=== PATIENT | female | born 1995 | race American Indian/Alaskan Native ===

== ENCOUNTER 2020-11-13 18:04 | Inpatient (IN) | payer MEDICAID ==
[2020-11-13] MEDS ORDERED: ePHEDrine SULFATE 50 MG/1 ML INJ IV PRN (18:40)
[2020-11-13] MEDS ORDERED: MINERAL OIL 30 ML ORAL LIQD PO PRN (18:40)
[2020-11-13] MEDS ORDERED: TERBUTALINE 1 MG/1 ML INJ SUB-Q PRN (18:40)
[2020-11-13] MEDS ORDERED: LIDOCAINE (2%) 20 MG/1 ML VIAL 20 ML MDV INFILTRATI ONE (18:40)
[2020-11-13] MEDS ORDERED: NALOXONE 0.4 MG/1 ML INJ IV PRN (18:40)
[2020-11-13] MEDS ORDERED: ONDANSETRON 4 MG/2 ML INJ IV PRN (18:40)
[2020-11-13] MEDS ORDERED: LACTATED RINGERS 1,000 ML IV SCH (18:45)
--- NOTE | 2020-11-13 18:56 | History and Physical Report ---
History of Present Illness Date of examination: 11/13/20 Date of admission: 11/13/20 18:04 Chief complaint: Presents for scheduled induction due to postdates and small for gestational age History of present illness: Early entry to care, course complicated by history of Nonrheumatic tricuspid valve insuffiency (co-managed with Cardiology); Anemia (PO FeSO4); Vitamin D Deficiency (Vit. D Supplements); and SGA (Co-managed with [facility]. Past History Past Medical History: heart disease (Tricuspid Valve Insufficiency), hematologic disorders (sickle cell trait) Past Surgical History: no surgical history Family/Genetic History: sickle cell/trait (Sickle Cell Dx: Brother) Social history: no significant social history, single - Obstetrical History Expected Date of Delivery: 11/09/20 Actual Gestation: 40 Week(s) 4 Day(s) : 3 Para: 1 Hx # Term Pregnancies: 1 Spontaneous Abortions: 1 Number of Living Children: 1 #1 Gender: Female year: 2016 Birthweight: 2.92 kg Method of Delivery: Vaginal Gestational age at delivery: 40 Complications: none Medications and Allergies Allergies Allergy/AdvReac Type Severity Reaction Status Date / Time No Known Allergies Allergy Verified 11/13/20 18:12 Active Meds: Active Medications Butorphanol Tartrate (Butorphanol 2 Mg/1 Ml Inj) 2 mg IV Q2H PRN PRN Reason: Pain , Severe (7-10) Ephedrine Sulfate (Ephedrine Sulfate 50 Mg/1 Ml Inj) 10 mg IV Q2M PRN PRN Reason: Hypotension Oxytocin/Sodium Chloride (Pitocin/Ns 30 Unit/500ml) 30 units in 500 mls @ 2 mls/hr IV TITR DENA; Protocol Lactated Ringer's (Lactated Ringers) 1,000 mls @ 125 mls/hr IV DIRECT DENA Oxytocin/Sodium Chloride (Pitocin/Ns 30 Unit/500ml) 30 units in 500 mls @ 40 mls/hr IV TITR DENA; Protocol Lidocaine (Lidocaine (2%) 20 Mg/1 Ml Vial 20 Ml Mdv) 20 ml INFILTRATI ONCE ONE Stop: 11/13/20 18:41 Mineral Oil (Mineral Oil 30 Ml Oral Liqd) 30 ml PO QHS PRN PRN Reason: Constipation Naloxone HCl (Naloxone 0.4 Mg/1 Ml Inj) 0.1 mg IV Q2MIN PRN PRN Reason: Res Rate </= 8 or 02 SAT < 92% Ondansetron HCl (Ondansetron 4 Mg/2 Ml Inj) 4 mg IV Q8H PRN PRN Reason: Nausea And Vomiting Terbutaline Sulfate (Terbutaline 1 Mg/1 Ml Inj) 0.25 mg SUB-Q ONCE PRN PRN Reason: Hyperstimulation/Hypertonicity Review of Systems All systems: negative - Vital Signs Vital signs: Vital Signs Temp Pulse Resp BP Pulse Ox 99 F 85 20 121/64 97 11/13/20 18:12 11/13/20 18:12 11/13/20 18:12 11/13/20 18:12 11/13/20 18:12 Temp Pulse Resp BP Pulse Ox 99 F 78 20 121/64 100 11/13/20 18:12 11/13/20 18:41 11/13/20 18:12 11/13/20 18:16 11/13/20 18:41 - Physical Exam Breasts: Positive: normal Cardiovascular: Regular rate Lungs: Positive: Clear to auscultation, Normal air movement Abdomen: Positive: normal appearance, soft, normal bowel sounds Genitourinary (Female): Positive: normal external genitalia, normal perenium Vagina: Positive: normal moisture Uterus: Positive: enlarged Anus/Rectum: Positive: normal perianal skin Extremities: Positive: normal - Obstetrical FHR: category 1 Uterine Contraction Monitor Mode: External Cervical Dilatation: 2 Cervical Effacement Percentage: 40 station: -3 Uterine Contraction Frequency (min): 2 Uterine Contraction Pattern: Regular Uterine Tone Measurement Phase: Resting Uterine Contraction Intensity: Mild Results All other labs normal. Assessment and Plan A: IUP @ 40 4/7 Weeks Category I Tracing Small for Gestational Age GBS Negative P: Admit to L&D Per Routine Orders Pitocin Induction
[2020-11-13] MEDS ORDERED: OXYTOCIN DRIP 30 UNITS/500 ML BAG IV SCH ×2 (19:00)
[2020-11-13 19:20] LABS: Hematocrit 32.3 % (30.3-42.9); Hemoglobin 11.4 gm/dl (10.1-14.3); Mean Corpuscular HGB Conc 35 % (30-34); Mean Corpuscular Volume 83 fl (79-97); Platelet Count 236 K/mm3 (140-440); Red Blood Count 3.89 M/mm3 (3.65-5.03); Red Cell Distribution Width 16.3 % (13.2-15.2)
[2020-11-13] MEDS: BUTORPHANOL 2 MG/1 ML INJ IV PRN (23:02)
[2020-11-14] MEDS: BUTORPHANOL 2 MG/1 ML INJ IV PRN ×2 (02:20→06:02)
--- NOTE | 2020-11-14 13:36 | Progress Note ---
Assessment and Plan A: IUP@ 40.5 wks postdates SGA Hx non rheumatic, triscupid valve insuff P: Continue monitoring Obtain report from cardio Pain med/Epidural prn Anticipate Subjective - Subjective Date of service: 11/14/20 Principal diagnosis: IUP@ 40.5 wks Patient reports: movement normal Objective - Vital Signs Vital Signs: Vital Signs - 12hr 11/14/20 11/14/20 11/14/20 01:35 01:40 05:30 Temperature 98.9 F 98.2 F Pulse Rate 63 Respiratory Rate Blood Pressure 114/68 Blood Pressure [Right] O2 Sat by Pulse Oximetry 11/14/20 11/14/20 11/14/20 05:57 07:49 07:51 Temperature 98.2 F Pulse Rate 77 79 Respiratory 16 Rate Blood Pressure 104/68 Blood Pressure 104/68 [Right] O2 Sat by Pulse 86 99 Oximetry 11/14/20 11/14/20 11/14/20 07:54 07:59 08:04 Temperature Pulse Rate 68 92 H 83 Respiratory Rate Blood Pressure Blood Pressure [Right] O2 Sat by Pulse 99 99 98 Oximetry 11/14/20 11/14/20 11/14/20 08:09 08:14 08:19 Temperature Pulse Rate 73 72 71 Respiratory Rate Blood Pressure Blood Pressure [Right] O2 Sat by Pulse 99 98 97 Oximetry 11/14/20 11/14/20 11/14/20 08:24 08:29 08:34 Temperature Pulse Rate 69 73 71 Respiratory Rate Blood Pressure Blood Pressure [Right] O2 Sat by Pulse 98 98 97 Oximetry 11/14/20 11/14/20 11/14/20 08:39 08:44 08:49 Temperature Pulse Rate 79 74 77 Respiratory Rate Blood Pressure Blood Pressure [Right] O2 Sat by Pulse 97 97 96 Oximetry 11/14/20 11/14/20 11/14/20 08:54 08:59 09:04 Temperature Pulse Rate 75 73 85 Respiratory Rate Blood Pressure Blood Pressure [Right] O2 Sat by Pulse 97 97 97 Oximetry 11/14/20 11/14/20 11/14/20 09:09 09:14 09:28 Temperature Pulse Rate 82 77 85 Respiratory Rate Blood Pressure Blood Pressure [Right] O2 Sat by Pulse 96 97 99 Oximetry 11/14/20 11/14/20 11/14/20 09:39 09:44 09:49 Temperature Pulse Rate 82 69 Respiratory Rate Blood Pressure Blood Pressure [Right] O2 Sat by Pulse 100 100 98 Oximetry 11/14/20 11/14/20 11/14/20 09:54 09:59 10:04 Temperature Pulse Rate 69 71 75 Respiratory Rate Blood Pressure Blood Pressure [Right] O2 Sat by Pulse 98 98 97 Oximetry 11/14/20 11/14/20 11/14/20 10:09 10:14 10:19 Temperature Pulse Rate 84 67 68 Respiratory Rate Blood Pressure Blood Pressure [Right] O2 Sat by Pulse 97 98 98 Oximetry 11/14/20 11/14/20 11/14/20 10:24 10:29 10:34 Temperature Pulse Rate 70 74 74 Respiratory Rate Blood Pressure Blood Pressure [Right] O2 Sat by Pulse 99 98 99 Oximetry 11/14/20 11/14/20 11/14/20 10:39 10:44 10:49 Temperature Pulse Rate 63 70 66 Respiratory Rate Blood Pressure Blood Pressure [Right] O2 Sat by Pulse 98 97 97 Oximetry 11/14/20 11/14/20 11/14/20 10:54 10:59 11:04 Temperature Pulse Rate 81 77 78 Respiratory Rate Blood Pressure Blood Pressure [Right] O2 Sat by Pulse 100 99 99 Oximetry 11/14/20 11/14/20 11/14/20 11:09 11:14 11:19 Temperature Pulse Rate 89 80 77 Respiratory Rate Blood Pressure Blood Pressure [Right] O2 Sat by Pulse 98 98 100 Oximetry 11/14/20 11/14/20 11/14/20 11:24 11:29 11:34 Temperature Pulse Rate 66 69 79 Respiratory Rate Blood Pressure Blood Pressure [Right] O2 Sat by Pulse 100 99 98 Oximetry 11/14/20 11/14/20 11/14/20 11:39 11:44 11:49 Temperature Pulse Rate 73 67 80 Respiratory Rate Blood Pressure Blood Pressure [Right] O2 Sat by Pulse 98 100 99 Oximetry 11/14/20 11/14/20 11/14/20 11:54 11:59 12:04 Temperature Pulse Rate 79 70 75 Respiratory Rate Blood Pressure Blood Pressure [Right] O2 Sat by Pulse 99 100 99 Oximetry 11/14/20 11/14/20 11/14/20 12:09 12:14 12:20 Temperature Pulse Rate 64 91 H 91 H Respiratory Rate Blood Pressure Blood Pressure [Right] O2 Sat by Pulse 99 100 100 Oximetry 11/14/20 11/14/20 11/14/20 12:25 12:30 12:35 Temperature Pulse Rate 77 62 63 Respiratory Rate Blood Pressure Blood Pressure [Right] O2 Sat by Pulse 99 100 100 Oximetry 11/14/20 11/14/20 11/14/20 12:40 12:45 12:50 Temperature Pulse Rate 67 62 76 Respiratory Rate Blood Pressure Blood Pressure [Right] O2 Sat by Pulse 100 100 99 Oximetry 11/14/20 11/14/20 11/14/20 12:55 13:00 13:05 Temperature Pulse Rate 65 64 66 Respiratory Rate Blood Pressure Blood Pressure [Right] O2 Sat by Pulse 100 99 99 Oximetry 11/14/20 11/14/20 11/14/20 13:10 13:15 13:20 Temperature Pulse Rate 67 80 64 Respiratory Rate Blood Pressure Blood Pressure [Right] O2 Sat by Pulse 99 100 100 Oximetry 11/14/20 11/14/20 13:25 13:30 Temperature Pulse Rate 75 70 Respiratory Rate Blood Pressure Blood Pressure [Right] O2 Sat by Pulse 100 99 Oximetry - Exam Breasts: normal Abdomen: Present: normal appearance, soft, normal bowel sounds, other (gravid) Vulva: both: normal Uterus: Present: normal, other (gravid) FHR: auscultation normal, category 1 Uterine Contraction Monitor Mode: External Cervical Dilatation: 2 Cervical Effacement Percentage: 40 station: -4 Uterine Contraction Pattern: Irregular Uterine Tone Measurement Phase: Resting Uterine Contraction Intensity: Mild Extremities: normal - Labs Labs: Abnormal Labs 11/13/20 19:00 MCHC 35 H RDW 16.3 H Laboratory Results - last 24 hr 11/13/20 11/13/20 19:00 19:00 WBC 10.2 RBC 3.89 Hgb 11.4 Hct 32.3 MCV 83 MCH 29 MCHC 35 H RDW 16.3 H Plt Count 236 Blood Type O POSITIVE Antibody Screen Negative
[2020-11-14] MEDS ORDERED: fentaNYL 100 MCG/2 ML INJ ONE (14:06)
[2020-11-14] MEDS ORDERED: diphenhydrAMINE 50 MG/ML VIAL IV PRN (15:00)
[2020-11-14] MEDS ORDERED: fentaNYL 100 MCG/2 ML INJ IV ONE (15:00)
[2020-11-14] MEDS ORDERED: NalbUPHINE 10 MG/1 ML INJ IV PRN (15:00)
[2020-11-14] MEDS ORDERED: NALOXONE 2 MG/2 ML INJ IV PRN (15:00)
[2020-11-14] MEDS ORDERED: ePHEDrine SULFATE 50 MG/1 ML INJ IV PRN (15:00)
--- NOTE | 2020-11-14 15:02 | Anesthesia Consultation ---
Anesthesia Consult and Med Hx Date of service: 11/14/20 - Airway Anesthetic Teeth Evaluation: Good ROM Head & Neck: Adequate Mental/Hyoid Distance: Adequate Mallampati Class: Class II Intubation Access Assessment: Probably Good - Pulmonary Exam CTA: Yes - Cardiac Exam Cardiac Exam: RRR - Pre-Operative Health Status ASA Pre-Surgery Classification: ASA2 Proposed Anesthetic Plan: Epidural - Pulmonary Hx Smoking: No Hx Asthma: No Hx Sleep Apnea: No - Cardiovascular System Hx Hypertension: No Hx Heart Attack/AMI: No Hx Angina: No - Central Nervous System Hx Seizures: No Hx Psychiatric Problems: No - Gastrointestinal Hx Gastroesophageal Reflux Disease: No - Endocrine Hx Renal Disease: No Hx Liver Disease: No Hx Insulin Dependent Diabetes: No Hx Non-Insulin Dependent Diabetes: No Hx Hypothyroidism: No Hx Hyperthyroidism: No - Hematic Hx Anemia: Yes Hx Sickle Cell Disease: Yes (trait) - Other Systems Hx Alcohol Use: No
--- NOTE | 2020-11-14 15:02 | Progress Note ---
Labor Epidural - Labor Epidural Start Time: 14:45 Stop Time: 15:00 Performed by:: KALEB CHEN ([facility]) Procedure: Patient is requesting epidural for labor and pain. H&P, labs were reviewed. Patient IDed, H&P reviewed, all questions and concerns were answered, and consent was signed. Timeout was performed at bedside. Patient in sitting position. Sterile prep and drape was performed. 3ml of 1% lidocaine skin wheal at L[3]- L [4]. 18-gauge Tuohy epidural needle was advanced to loss of resistance with air technique 7cm. Negative CSF negative blood. Epidural catheter advanced to [12] centimeters. [negative] Aspiration [negative] test dose. Sterile dressing applied. Patient tolerated procedure.
[2020-11-14] MEDS: fentaNYL-BUPIV 2 MCG/ML-0.125% 200 MCG/100 ML BAG EPIDURAL SCH ×2 (15:28→16:03)
--- NOTE | 2020-11-14 19:01 | Event Note ---
Date: 11/14/[address] [facility] [address] Braga and reviewed Cardiology report from 09/26/20 that discussed hx of tricuspid regurgitation and mild pulmonary hypertension from echo completed at that time. No reported contraindication to labor and hx of successful in the past. Given reported chest discomfort, will obtain EKG and troponins. If labs abnormal, will proeed with cardiology consult. Decrease IVF to 50-75cc/hr to not fluid overload and management pain with epidural. Continue to monitor closely.
--- NOTE | 2020-11-14 23:53 | Procedure Note ---
OB Delivery Note - Delivery Date of Delivery: 11/14/20 Surgeon: ELIZABETH ALEX Estimated blood loss: 200cc - Vaginal Delivery presentation: vertex Delivery position: OA Intrapartum events: mult.variable deceleratio Delivery induction: oxytocin Delivery monitor: external FHT, external uterine Route of delivery: Delivery placenta: spontaneous Delivery cord: 3 umbilical vessels Episiotomy: none Delivery laceration: none Anesthesia: epidural Delivery comments: Called to for delivery. SVE 10/100%/+2 and pt was pushing. of a live viable female in OA position at 2000. Head and shoulders delivered spontaneously. Infant was placed on mom's chest for skin to skin bonding while nurses dried and stimulated baby. Delayed cord clamping x 90 sec then cord was clamped x 2 and cut. was taken to warmer for an asses by [facility] nurse. 8/9. Spontaneous delivery of an intact placenta with 3CV. FF@ U2 with fundal massage and IV Pitocin. An exploration of tears revealed none. EBL 200cc FW 2916 Gms. Mom and baby was left in stable cond with nurses. - Infant A at 1 minute: 8 at 5 minutes: 9 Infant Gender: Female (FW [id number])
--- NOTE | 2020-11-15 10:54 | Post Anesthesia Evaluation ---
- Post Anesthesia Evaluation Patient Participated: Yes Airway Patent: Yes Stable Respiratory Function: Yes Nausea/Vomiting: No Temp > 96.8F: Yes Pain Manageable: Yes Adequeate Hydration: Yes Anesthesia Complications: No Block Receding Appropriately: Yes Patient on Ventilator: No
--- NOTE | 2020-11-15 11:07 | Progress Note ---
Assessment and Plan routine pp care d/c to home tomorrow Derrell Antonio MD Subjective - Subjective Date of service: 11/15/20 Principal diagnosis: PP Day #1 Interval history: doing well lochia mild to moderate pain controlled with PO meds baby doing well tolerating PO Objective - Vital Signs Latest vital signs: Vital Signs Temp Pulse Resp BP BP Pulse Ox 11/15/20 08:39 97.8 F 79 18 112/65 98 11/14/20 22:00 98.6 F 85 18 129/63 100 11/14/20 21:24 86 100 11/14/20 21:19 91 H 100 11/14/20 21:14 85 100 11/14/20 21:09 82 100 11/14/20 21:04 90 98 11/14/20 21:03 93 H 117/64 11/14/20 20:59 92 H 99 11/14/20 20:54 91 H 100 11/14/20 20:49 95 H 100 11/14/20 20:44 91 H 99 11/14/20 20:39 98 H 99 11/14/20 20:34 98 H 99 11/14/20 20:32 101 H 118/69 11/14/20 20:29 96 H 97 11/14/20 20:24 100 H 100 11/14/20 20:21 87 119/63 11/14/20 20:20 98.4 F 11/14/20 20:19 99 H 100 11/14/20 20:17 69 81 L 11/14/20 20:14 105 H 99 11/14/20 20:09 86 99 11/14/20 20:04 100 H 99 11/14/20 20:02 103 H 120/65 11/14/20 19:59 139 H 99 11/14/20 19:54 141 H 100 11/14/20 19:49 109 H 100 11/14/20 19:44 74 100 11/14/20 19:39 88 99 11/14/20 19:34 82 100 11/14/20 19:33 72 120/58 11/14/20 19:29 87 98 11/14/20 19:24 75 99 11/14/20 19:19 133 H 99 11/14/20 19:16 109 H 129/73 11/14/20 19:14 104 H 100 11/14/20 19:09 91 H 100 11/14/20 19:04 120 H 99 11/14/20 18:59 80 100 11/14/20 18:54 113 H 100 11/14/20 18:49 111 H 98 11/14/20 18:44 77 100 11/14/20 18:39 113 H 98 11/14/20 18:34 82 100 11/14/20 18:33 73 110/67 11/14/20 18:29 95 H 99 11/14/20 18:24 80 100 11/14/20 18:19 109 H 100 11/14/20 18:14 72 100 11/14/20 18:09 74 100 11/14/20 18:04 84 100 11/14/20 18:03 71 104/55 11/14/20 17:59 68 100 11/14/20 17:54 75 100 11/14/20 17:49 67 100 11/14/20 17:44 77 100 11/14/20 17:39 76 100 11/14/20 17:34 71 106/51 100 11/14/20 17:29 73 100 11/14/20 17:24 78 100 11/14/20 17:19 84 100 11/14/20 17:14 71 100 11/14/20 17:09 69 100 11/14/20 17:04 89 105/54 100 11/14/20 16:59 72 100 11/14/20 16:54 67 100 11/14/20 16:53 61 112/60 11/14/20 16:49 81 100 11/14/20 16:44 77 100 11/14/20 16:39 71 98 11/14/20 16:34 66 99 11/14/20 16:33 67 97/51 11/14/20 16:29 66 100 11/14/20 16:24 98 H 99 11/14/20 16:19 88 99 11/14/20 16:14 76 100 11/14/20 16:09 104 H 99 11/14/20 16:05 77 104/60 11/14/20 16:04 73 100 11/14/20 16:00 97.5 F L 11/14/20 15:59 99 H 99 11/14/20 15:54 108 H 100 11/14/20 15:49 112 H 99 11/14/20 15:44 72 100 11/14/20 15:39 93 H 100 11/14/20 15:34 84 100 11/14/20 15:32 83 132/76 11/14/20 15:30 80 120/69 11/14/20 15:29 75 100 11/14/20 15:28 105 H 119/68 11/14/20 15:26 80 122/66 11/14/20 15:24 67 123/68 100 11/14/20 15:22 66 126/71 11/14/20 15:20 94 H 132/77 11/14/20 15:19 74 100 11/14/20 15:18 96 H 124/74 11/14/20 15:16 76 118/68 11/14/20 15:14 76 121/65 100 11/14/20 15:12 61 123/62 11/14/20 15:10 66 119/55 11/14/20 15:09 77 100 11/14/20 15:08 96 H 123/58 11/14/20 15:06 83 115/58 11/14/20 15:04 95 H 129/60 100 11/14/20 15:02 86 121/65 11/14/20 15:00 89 136/71 11/14/20 14:59 75 99 11/14/20 14:58 91 H 135/70 11/14/20 14:56 90 135/64 11/14/20 14:54 86 100 11/14/20 14:52 89 139/64 11/14/20 14:49 86 99 11/14/20 14:44 77 138/75 100 11/14/20 14:39 100 11/14/20 14:30 100 H 99 11/14/20 14:25 84 97 11/14/20 14:22 89 115/63 11/14/20 14:20 75 97 11/14/20 14:15 86 97 11/14/20 14:12 16 11/14/20 14:10 108 H 100 11/14/20 14:08 106 H 128/72 11/14/20 14:05 87 98 11/14/20 14:00 107 H 99 11/14/20 13:55 87 100 11/14/20 13:50 95 H 100 11/14/20 13:47 18 128/72 98 11/14/20 13:45 83 100 11/14/20 13:40 79 100 11/14/20 13:35 78 99 11/14/20 13:30 70 99 11/14/20 13:25 75 100 11/14/20 13:20 64 100 11/14/20 13:15 80 100 11/14/20 13:10 67 99 11/14/20 13:05 66 99 11/14/20 13:00 64 99 11/14/20 12:55 65 100 11/14/20 12:50 76 99 11/14/20 12:45 62 100 11/14/20 12:40 67 100 11/14/20 12:35 63 100 11/14/20 12:30 62 100 11/14/20 12:25 77 99 11/14/20 12:20 91 H 100 11/14/20 12:14 91 H 100 11/14/20 12:09 64 99 11/14/20 12:04 75 99 11/14/20 12:00 98.5 F 11/14/20 11:59 70 100 11/14/20 11:54 79 99 11/14/20 11:49 80 99 11/14/20 11:44 67 100 11/14/20 11:39 73 98 11/14/20 11:34 79 98 11/14/20 11:29 69 99 11/14/20 11:24 66 100 11/14/20 11:19 77 100 11/14/20 11:14 80 98 11/14/20 11:09 89 98 Intake and Output 11/14/20 11/15/20 11/15/20 23:59 07:59 15:59 Intake Total 1 Output Total 100 1100 Balance -100 -1099 Intake: Intake, Free Water 1 Output: Urine 100 1100 Indwelling Catheter 100 1100 Other: Total, Output Amount 100 300 # Voids Indwelling Catheter 1 Estimated Blood Loss 200 - Exam Breasts: Present: deferred Cardiovascular: Present: Regular rate Lungs: Present: Clear to auscultation Abdomen: Present: normal appearance, normal bowel sounds Uterus: Present: fundal height at umbilicus Extremities: Present: normal
[2020-11-15] MEDS ORDERED: WITCH HAZEL/ GLYCERIN PAD TP PRN (15:33)
[2020-11-15] MEDS ORDERED: diphenhydrAMINE 25 MG CAP PO PRN (15:33)
[2020-11-15] MEDS ORDERED: ACETAMINOPHEN 325 MG TAB PO PRN (15:33)
[2020-11-15 15:56] LABS: Hematocrit 32.3 % (30.3-42.9)
[2020-11-15] MEDS ORDERED: PROMETHAZINE 25 MG TAB PO PRN (16:00)
[2020-11-15] MEDS ORDERED: ONDANSETRON 4 MG/2 ML INJ IV PRN (16:00)
[2020-11-15] MEDS ORDERED: PROMETHAZINE 25 MG RECT SUPP PR PRN (16:00)
[2020-11-15] MEDS ORDERED: LANOLIN/ZINC/DIMETHICONE (LANSINOH) 7 GM TP PRN (16:00)
[2020-11-15] MEDS ORDERED: HYDROcodone/ACETAMINOPHEN 5-325 MG TAB PO PRN (16:00)
[2020-11-15] MEDS: IBUPROFEN 600 MG TAB PO SCH ×2 (19:06→21:59)
[2020-11-15] MEDS ORDERED: MAGNESIUM HYDROXIDE (MOM) ORAL LIQD UDC PO PRN (22:00)
[2020-11-16] MEDS: IBUPROFEN 600 MG TAB PO SCH ×2 (05:23→12:00)
[2020-11-16 08:09] VITALS: BP 115/67
[2020-11-16 08:40] LABS: Hematocrit 32.4 % (30.3-42.9)
--- NOTE | 2020-11-16 10:33 | Progress Note ---
Assessment and Plan A: day 2 S/P . P: Discharge patient home today. Discussed with patient discharge instructions and warning signs. Advised patient to continue taking her vitamins at home. Advised patient to avoid intercourse, lifting, housework. Advised patient to follow up with her housing management representative this week and to follow up at [facility] in 4-6 weeks for exam. Patient voiced understanding of all instructions. Subjective - Subjective Date of service: 11/16/20 Principal diagnosis: PP Day #2 Interval history: Patient requests discharge home today. Patient reports: appetite normal, voiding normally, pain well controlled, flatus, ambulating normally, no dizzy ambulation, no nauseated [place]: doing well Objective - Vital Signs Latest vital signs: Vital Signs Temp Pulse Resp BP BP Pulse Ox 11/16/20 07:40 98.0 F 62 18 115/67 100 11/16/20 00:43 97.5 F L 73 20 96/44 99 11/15/20 16:25 98.0 F 18 117/73 11/15/20 12:29 98.2 F 76 18 119/52 100 Intake and Output 11/15/20 11/16/20 11/16/20 23:59 07:59 15:59 Intake Total 200 680 Balance 200 680 Intake: Oral 200 200 Intake, Free Water 480 Other: Total, Intake Amount 200 200 # Voids Void 1 1 - Exam Cardiovascular: Present: Regular rate Lungs: Present: Clear to auscultation Abdomen: Present: normal appearance, soft. Absent: distention, tenderness, guarding, rigidity Uterus: Present: normal, firm, fundal height below umbilicus. Absent: bogginess, tenderness Extremities: Present: normal. Absent: tenderness, edema
--- NOTE | 2020-11-16 10:37 | Discharge Summary ---
Providers - Providers Date of Admission: 11/13/20 18:04 Date of discharge: 11/16/20 Attending physician: CLAUDIA CISSE Primary care physician: CLAUDIA CISSE Hospitalization Reason for admission: induction of labor Delivery: Laceration: none Other procedures: none complications: none Discharge diagnosis: IUP at term delivered baby: female Pertinent studies: Labs Hospital course: Stable hospital course Condition at discharge: Stable Disposition: DC-01 TO HOME OR SELFCARE Plan - Discharge Medications Prescriptions: Ibuprofen [Ibu-200] 200 mg PO Q4HR PRN #60 tablet PRN Reason: Pain, Mild (1-3) - Provider Discharge Summary Activity: routine, no sex for 6 weeks, no heavy lifting 4 weeks, no strenuous exercise Diet: routine Instructions: routine Additional instructions: Continue taking your vitamins at home. Follow up with your button grader within 1 week. Follow up at [facility] office in 4-6 weeks for exam. Call your doctor immediately for: * Fever > 100.5 * Heavy vaginal bleeding ( >1 pad per hour) * Severe persistent headache * Shortness of breath * Reddened, hot, painful area to leg or breast - Follow up plan Follow up: CLAUDIA CISSE MD [Primary Care Provider] - 6 Weeks Forms: [facility] Discharge Summary
== END 2020-11-16 14:16 | disposition home or self-care (01) | DRG 775 ==
LOC: LD 18:04 → OB 11-14 21:52
PROVIDERS: ADMIT Obstetrics & Gynecology; ATTEND Obstetrics & Gynecology
PROC: 10E0XZZ Delivery of Products of Conception, External Approach (ICD-10-PCS; principal; 2020-11-14)
PROC: 3E0P7VZ Introduction of Hormone into Female Reproductive, Via Natural or Artificial Opening (ICD-10-PCS; 2020-11-14)
PROC: 3E0R3BZ Introduction of Anesthetic Agent into Spinal Canal, Percutaneous Approach (ICD-10-PCS; 2020-11-14)
PROC: 00HU33Z Insertion of Infusion Device into Spinal Canal, Percutaneous Approach (ICD-10-PCS; 2020-11-14)
DX: O48.0 Post-term pregnancy (principal); Z3A.40 40 weeks gestation of pregnancy; Z37.0 Single live birth; Z20.822 Contact with and (suspected) exposure to COVID-19
CPT/HCPCS: 36415; 85014; 85018; 85027; 86850; 86900; 86901; G0378; J0595; J2590; J3010; J7120; U0003